=== PATIENT | male | born 1950 | race African-American/Black ===

== ENCOUNTER 2016-08-13 19:48 | Inpatient (IN) | payer MEDICARE, MEDICAID ==
[~2016-08-13] VITALS: Ht 180.3 cm; Wt 169.8 kg
[~2016-08-13 19:48] MED LIST: ALLO300 PO; AMLO2.5T PO; ARIP10TA14 PO; ATOR20TA86 PO; CARV12 PO; DOCU250C76 PO; FURO40 PO; LEVAHFA IH; MULT-22 PO; PANT40TA25 PO; WARF2 PO
[2016-08-13 20:22] LABS: GLUCOSE COMMENT 1 Doctor Notified; GLUCOSE,POINT OF CARE 103 MG/DL (70-110)
[2016-08-13 21:27] LABS: EOSINOPHILS % (AUTO) 1.3 % (1.0-6.0); HEMATOCRIT 42.9 % (41-53); HEMOGLOBIN 13.4 g/dL (13.5-17.5); LYMPHOCYTES # (AUTO) 1.9 K/uL (1.0-4.8); LYMPHOCYTES % (AUTO) 15.2 % (22.0-44.0); MEAN CORPUSCULAR HEMOGLOBIN 25.5 pg (26.0-34.0); MEAN CORPUSCULAR HGB CONC 31.2 G/dL (31.0-37.0); MEAN CORPUSCULAR VOLUME 82 fL (80-100); MONOCYTES # (AUTO) 0.6 K/uL (0.1-1.0); NEUTROPHILS # (AUTO) 9.9 K/uL (1.8-7.7); NEUTROPHILS % (AUTO) 78.5 % (40.0-70.0); PLATELET COUNT (AUTO) 263 K/uL (150-450); RED BLOOD CELL COUNT(AUTO) 5.26 MIL/uL (4.50-5.90); RED CELL DISTRIBUTION WIDTH 17.6 % (11.5-14.5); WHITE BLOOD COUNT (AUTO) 12.6 K/uL (4.5-11.0)
[2016-08-13 21:43] LABS: RBC MORPHOLOGY COMMENT ABNORMAL RBC MORPH
[2016-08-13 21:45] LABS: ANION GAP 8 mmol/L (8-16); CALCIUM, TOTAL 8.4 mg/dL (8.8-10.5); CARBON DIOXIDE 31 mmol/L (22-29); CHLORIDE 107 mmol/L (98-107); CREATININE 1.74 mg/dL (0.60-1.30); GLOMERULAR FILTR. RATE CALC 47 mL/min (>60); POTASSIUM 4.4 mmol/L (3.5-5.1); SODIUM SERUM 146 mmol/L (136-145); UREA NITROGEN, BLOOD 23 mg/dL (7-18)
[2016-08-13 21:50] LABS: ALANINE AMINOTRANSFERASE 12 U/L (12-78); ALBUMIN 2.8 g/dL (3.4-5.0); ASPARTATE AMINOTRANSFERASE 13 U/L (15-37); BILIRUBIN,TOTAL 0.7 mg/dL (0.1-1.0); TOTAL PROTEIN, SERUM 7.8 g/dL (6.4-8.2)
[2016-08-13 22:59] LABS: APPEARANCE,URINE CLEAR (CLEAR); GLUCOSE, URINE (UA) NEGATIVE (NEGATIVE); KETONES,URINE NEGATIVE (NEGATIVE); LEUKOCYTE ESTERASE ,URINE NEGATIVE (NEGATIVE); OCCULT BLOOD,URINE MODERATE (NEGATIVE); PH,URINE 6.5 (5.0-8.0); PROTEIN,URINE SEE CONFIRM (NEGATIVE)
[2016-08-13 23:09] LABS: ADD UA MICROSCOPIC YES
[2016-08-13 23:34] LABS: SULFOSALICYLIC ACID,URINE 2+ (Negative)
[2016-08-14] MEDS ORDERED: HALOPERIDOL 5 MG TABLET PO PRN (00:45)
[2016-08-14] MEDS ORDERED: LORazepam 1 MG TABLET PO PRN (00:45)
[2016-08-14 03:33] VITALS: BP 138/79
[2016-08-14] MEDS: ARIPiprazole 10 MG TABLET PO SCH (11:26)
[2016-08-14 12:45] VITALS: BP 138/91
[2016-08-14] MEDS ORDERED: MAG HYDROX/AL HYDROX/SIMETH ES 30 ML SUSPENSION UDCUP PO PRN (16:30)
[2016-08-14] MEDS ORDERED: ONDANSETRON HCL 4 MG TABLET PO PRN (16:30)
[2016-08-14] MEDS ORDERED: IBUPROFEN 600 MG TABLET PO PRN (16:30)
[2016-08-14] MEDS ORDERED: ALBUTEROL SULFATE HFA 90 MCG/PUFF 8 GM INHALER IH PRN (16:30)
[2016-08-14] MEDS ORDERED: CloNIDine HCL 0.1 MG TABLET PO PRN (16:30)
[2016-08-14] MEDS ORDERED: MAGNESIUM HYDROXIDE SUSPENSION 30 ML UDCUP PO PRN (16:30)
[2016-08-14] MEDS ORDERED: LOPERAMIDE HCL 2 MG CAPSULE PO PRN (16:30)
[2016-08-14] MEDS ORDERED: BACITRACIN 28.4 GM OINTMENT TP PRN (16:30)
[2016-08-14] MEDS ORDERED: DEXTROSE 50%-WATER 25 GM/50 ML SYRINGE IVP PRN (16:30)
[2016-08-14] MEDS ORDERED: PETROLATUM,WHITE 71 GM JELLY TP PRN (16:30)
[2016-08-14] MEDS ORDERED: BENZOCAINE/MENTHOL LOZENGE [8 LOZENGES/PACKET] MM PRN (16:45)
[2016-08-14] MEDS: DOCUSATE SODIUM 250 MG CAPSULE PO SCH (17:32)
[2016-08-14] MEDS: CARVEDILOL 12.5 MG TABLET PO SCH (17:33)
[2016-08-14 17:34] VITALS: BP 165/107
[2016-08-14 17:52] LABS: GLUCOSE,POINT OF CARE 115 MG/DL (70-110)
[2016-08-14 21:48] LABS: GLUCOSE,POINT OF CARE 105 MG/DL (70-110)
[2016-08-14 22:52] VITALS: BP 149/70
[2016-08-15 03:00] VITALS: BP 136/83
[2016-08-15 03:17] LABS: GLUCOSE,POINT OF CARE 125 MG/DL (70-110)
[2016-08-15 05:10] VITALS: BP 132/79
[2016-08-15 05:22] LABS: GLUCOSE,POINT OF CARE 111 MG/DL (70-110)
[2016-08-15 06:29] LABS: HEMOGLOBIN A1C 7.4 % (4.5-6.2)
[2016-08-15 06:38] LABS: CALCIUM, TOTAL 8.8 mg/dL (8.8-10.5); CHOL/HDL RATIO 3.7 (4.2-7.3); CREATININE 1.61 mg/dL (0.60-1.30); POTASSIUM 3.8 mmol/L (3.5-5.1); THYROID STIMULATING HORMONE 0.81 uIU/mL (0.36-3.74)
[2016-08-15 08:30] VITALS: BP 123/53
[2016-08-15] MEDS: PANTOPRAZOLE SODIUM 40 MG DR TABLET PO SCH ×2 (08:56→09:00)
[2016-08-15] MEDS: DOCUSATE SODIUM 250 MG CAPSULE PO SCH ×3 (08:56→17:00)
[2016-08-15] MEDS: ATORVASTATIN CALCIUM 20 MG TABLET PO SCH ×2 (08:56→09:00)
[2016-08-15] MEDS: MULTIVITAMINS, THERAPEUTIC TABLET PO SCH ×2 (08:56→09:00)
[2016-08-15] MEDS: ARIPiprazole 10 MG TABLET PO SCH ×2 (08:57→09:00)
[2016-08-15] MEDS: FUROSEMIDE 40 MG TABLET PO SCH ×2 (08:57→09:00)
[2016-08-15] MEDS: CARVEDILOL 12.5 MG TABLET PO SCH ×3 (08:57→17:00)
[2016-08-15] MEDS: ALLOPURINOL 300 MG TABLET PO SCH ×2 (08:58→09:00)
[2016-08-15] MEDS: AmLODIPine BESYLATE 2.5 MG TABLET PO SCH ×2 (08:59→09:00)
[2016-08-15] MEDS ORDERED: LORazepam 2 MG/ML VIAL IM ONE ×2 (10:15→11:15)
[2016-08-15] MEDS ORDERED: DiphenhydrAMINE HCL 50 MG/ML VIAL IM ONE ×2 (10:15→11:15)
[2016-08-15] MEDS ORDERED: HALOPERIDOL LACTATE 5 MG/ML VIAL IM ONE (10:15)
[2016-08-15 10:36] LABS: GLUCOSE,POINT OF CARE 122 MG/DL (70-110)
[2016-08-15 13:00] VITALS: BP 129/65
[2016-08-15] MEDS: INSULIN ASPART 100 UNITS/ML SQ PRN (13:26)
[2016-08-15 16:14] VITALS: BP 126/76
[2016-08-15 18:57] LABS: GLUCOSE COMMENT 1 FASTING; GLUCOSE,POINT OF CARE 98 MG/DL (70-110)
[2016-08-16 02:11] LABS: GLUCOSE,POINT OF CARE 74 MG/DL (70-110)
[2016-08-16 05:18] VITALS: BP 115/60
[2016-08-16 05:22] LABS: GLUCOSE,POINT OF CARE 72 MG/DL (70-110)
[2016-08-16 06:44] LABS: BASOPHILS % (AUTO) 0.2 % (0.0-2.0); EOSINOPHILS % (AUTO) 2.8 % (1.0-6.0); HEMOGLOBIN 13.5 g/dL (13.5-17.5); LYMPHOCYTES # (AUTO) 1.9 K/uL (1.0-4.8); LYMPHOCYTES % (AUTO) 17.6 % (22.0-44.0); MEAN CORPUSCULAR HGB CONC 31.4 G/dL (31.0-37.0); MEAN CORPUSCULAR VOLUME 83 fL (80-100); MONOCYTES # (AUTO) 0.7 K/uL (0.1-1.0); MONOCYTES % (AUTO) 6.2 % (2.0-9.0); NEUTROPHILS # (AUTO) 7.7 K/uL (1.8-7.7); NEUTROPHILS % (AUTO) 73.2 % (40.0-70.0); PLATELET COUNT (AUTO) 207 K/uL (150-450); RED CELL DISTRIBUTION WIDTH 17.6 % (11.5-14.5); WHITE BLOOD COUNT (AUTO) 10.6 K/uL (4.5-11.0)
[2016-08-16 06:46] LABS: RBC MORPHOLOGY COMMENT ABNORMAL RBC MORPH
[2016-08-16 07:09] LABS: ALBUMIN 2.4 g/dL (3.4-5.0); BILIRUBIN,TOTAL 0.8 mg/dL (0.1-1.0); CALCIUM, TOTAL 8.6 mg/dL (8.8-10.5); CREATININE 1.52 mg/dL (0.60-1.30); MAGNESIUM 2.3 mg/dL (1.80-2.40); PHOSPHORUS 4.3 mg/dL (2.5-4.9); POTASSIUM 4.5 mmol/L (3.5-5.1); TOTAL PROTEIN, SERUM 7.1 g/dL (6.4-8.2)
[2016-08-16 09:00] VITALS: BP 154/65
[2016-08-16] MEDS: MULTIVITAMINS, THERAPEUTIC TABLET PO SCH (09:17)
[2016-08-16] MEDS: ARIPiprazole 10 MG TABLET PO SCH (09:17)
[2016-08-16] MEDS: ATORVASTATIN CALCIUM 20 MG TABLET PO SCH (09:17)
[2016-08-16] MEDS: CHOLECALCIFEROL (VIT D3) 1,000 UNITS TABLET PO SCH (09:17)
[2016-08-16] MEDS: FUROSEMIDE 40 MG TABLET PO SCH (09:18)
[2016-08-16] MEDS: ALLOPURINOL 300 MG TABLET PO SCH (09:18)
[2016-08-16] MEDS: AmLODIPine BESYLATE 2.5 MG TABLET PO SCH (09:18)
[2016-08-16] MEDS: CARVEDILOL 12.5 MG TABLET PO SCH ×2 (09:18→16:51)
[2016-08-16] MEDS: PANTOPRAZOLE SODIUM 40 MG DR TABLET PO SCH (09:18)
[2016-08-16] MEDS: DOCUSATE SODIUM 250 MG CAPSULE PO SCH ×2 (09:18→16:51)
[2016-08-16 11:22] LABS: GLUCOSE,POINT OF CARE 104 MG/DL (70-110)
[2016-08-16 16:33] VITALS: BP 128/63
[2016-08-16 17:16] LABS: GLUCOSE,POINT OF CARE 123 MG/DL (70-110)
[2016-08-16 21:52] LABS: GLUCOSE,POINT OF CARE 115 MG/DL (70-110)
[2016-08-16] MEDS: ZOLPIDEM TARTRATE 10 MG TABLET PO PRN (22:38)
[2016-08-17 01:02] VITALS: BP 120/57
[2016-08-17 05:33] LABS: GLUCOSE,POINT OF CARE 108 MG/DL (70-110)
[2016-08-17 08:00] VITALS: BP 129/76
[2016-08-17] MEDS: PANTOPRAZOLE SODIUM 40 MG DR TABLET PO SCH (08:50)
[2016-08-17] MEDS: CHOLECALCIFEROL (VIT D3) 1,000 UNITS TABLET PO SCH (08:50)
[2016-08-17] MEDS: MULTIVITAMINS, THERAPEUTIC TABLET PO SCH (08:50)
[2016-08-17] MEDS: DOCUSATE SODIUM 250 MG CAPSULE PO SCH ×2 (09:00→16:31)
[2016-08-17] MEDS: FUROSEMIDE 40 MG TABLET PO SCH (09:37)
[2016-08-17] MEDS: CARVEDILOL 12.5 MG TABLET PO SCH ×3 (09:37→17:25)
[2016-08-17] MEDS: ARIPiprazole 10 MG TABLET PO SCH (09:37)
[2016-08-17] MEDS: ALLOPURINOL 300 MG TABLET PO SCH (09:37)
[2016-08-17] MEDS: ATORVASTATIN CALCIUM 20 MG TABLET PO SCH (09:37)
[2016-08-17] MEDS: AmLODIPine BESYLATE 2.5 MG TABLET PO SCH (09:38)
[2016-08-17 11:32] LABS: GLUCOSE COMMENT 1 Repeated; GLUCOSE,POINT OF CARE 108 MG/DL (70-110)
[2016-08-17] MEDS: INSULIN ASPART 100 UNITS/ML SQ PRN (16:29)
[2016-08-17] MEDS: ACETAMINOPHEN 325 MG TABLET PO PRN ×2 (16:33→20:51)
[2016-08-17 16:36] VITALS: BP 122/54
[2016-08-17 16:57] LABS: GLUCOSE,POINT OF CARE 90 MG/DL (70-110)
[2016-08-17 20:55] VITALS: BP 132/78
[2016-08-17 20:57] LABS: GLUCOSE COMMENT 1 Received Meds; GLUCOSE,POINT OF CARE 144 MG/DL (70-110)
[2016-08-17] MEDS: ZOLPIDEM TARTRATE 10 MG TABLET PO PRN (23:52)
[2016-08-18 05:03] VITALS: BP 131/64
[2016-08-18 05:22] LABS: GLUCOSE,POINT OF CARE 128 MG/DL (70-110)
[2016-08-18 08:01] VITALS: BP 121/75
[2016-08-18] MEDS: AmLODIPine BESYLATE 2.5 MG TABLET PO SCH (08:46)
[2016-08-18] MEDS: CHOLECALCIFEROL (VIT D3) 1,000 UNITS TABLET PO SCH (08:46)
[2016-08-18] MEDS: CARVEDILOL 12.5 MG TABLET PO SCH ×2 (08:46→16:33)
[2016-08-18] MEDS: ALLOPURINOL 300 MG TABLET PO SCH (08:46)
[2016-08-18] MEDS: PANTOPRAZOLE SODIUM 40 MG DR TABLET PO SCH (08:46)
[2016-08-18] MEDS: ARIPiprazole 10 MG TABLET PO SCH (08:46)
[2016-08-18] MEDS: ATORVASTATIN CALCIUM 20 MG TABLET PO SCH (08:46)
[2016-08-18] MEDS: FUROSEMIDE 40 MG TABLET PO SCH (08:46)
[2016-08-18] MEDS: DOCUSATE SODIUM 250 MG CAPSULE PO SCH ×2 (08:47→16:33)
[2016-08-18] MEDS: MULTIVITAMINS, THERAPEUTIC TABLET PO SCH (08:47)
[2016-08-18 11:17] LABS: GLUCOSE,POINT OF CARE 138 MG/DL (70-110)
[2016-08-18 16:41] LABS: GLUCOSE,POINT OF CARE 123 MG/DL (70-110)
[2016-08-18 16:49] VITALS: BP 123/62
[2016-08-18 20:56] LABS: GLUCOSE,POINT OF CARE 106 MG/DL (70-110)
[2016-08-19 06:57] LABS: GLUCOSE,POINT OF CARE 96 MG/DL (70-110)
[2016-08-19 08:00] VITALS: BP 135/71
[2016-08-19] MEDS: FUROSEMIDE 40 MG TABLET PO SCH (09:18)
[2016-08-19] MEDS: ALLOPURINOL 300 MG TABLET PO SCH (09:18)
[2016-08-19] MEDS: DOCUSATE SODIUM 250 MG CAPSULE PO SCH (09:18)
[2016-08-19] MEDS: CARVEDILOL 12.5 MG TABLET PO SCH (09:18)
[2016-08-19] MEDS: PANTOPRAZOLE SODIUM 40 MG DR TABLET PO SCH (09:18)
[2016-08-19] MEDS: AmLODIPine BESYLATE 2.5 MG TABLET PO SCH (09:18)
[2016-08-19] MEDS: ATORVASTATIN CALCIUM 20 MG TABLET PO SCH (09:18)
[2016-08-19] MEDS: ARIPiprazole 10 MG TABLET PO SCH (09:18)
[2016-08-19] MEDS: CHOLECALCIFEROL (VIT D3) 1,000 UNITS TABLET PO SCH (09:18)
[2016-08-19] MEDS: MULTIVITAMINS, THERAPEUTIC TABLET PO SCH (09:19)
[2016-08-19 11:33] LABS: GLUCOSE,POINT OF CARE 123 MG/DL (70-110)
[2016-08-19] MEDS ORDERED: VITAD1000 PO (12:17)
== END 2016-08-19 13:30 | disposition home or self-care (01) | DRG 750 ==
LOC: EMS 19:49 → 3EI 08-14 00:19
PROVIDERS: ADMIT Psychiatry & Neurology Child & Adolescent Psychiatry; ATTEND Psychiatry & Neurology Child & Adolescent Psychiatry
PROC: 5A09357 Assistance with Respiratory Ventilation, Less than 24 Consecutive Hours, Continuous Positive Airway Pressure (ICD-10-PCS; principal; 2016-08-15)
DX: F20.0 Paranoid schizophrenia (principal); N17.9 Acute kidney failure, unspecified; F03.90 Unspecified dementia, unspecified severity, without behavioral disturbance, psychotic disturbance, mood disturbance, and anxiety; I11.0 Hypertensive heart disease with heart failure; E11.40 Type 2 diabetes mellitus with diabetic neuropathy, unspecified; I50.9 Heart failure, unspecified; E78.5 Hyperlipidemia, unspecified; E78.00 Pure hypercholesterolemia, unspecified; E66.01 Morbid (severe) obesity due to excess calories; G47.33 Obstructive sleep apnea (adult) (pediatric); Z82.49 Family history of ischemic heart disease and other diseases of the circulatory system; I25.10 Atherosclerotic heart disease of native coronary artery without angina pectoris; J44.9 Chronic obstructive pulmonary disease, unspecified; I50.22 Chronic systolic (congestive) heart failure; F09 Unspecified mental disorder due to known physiological condition; J45.909 Unspecified asthma, uncomplicated; K21.9 Gastro-esophageal reflux disease without esophagitis; Z89.512 Acquired absence of left leg below knee; Z88.0 Allergy status to penicillin; Z88.5 Allergy status to narcotic agent; Z91.14 Patient's other noncompliance with medication regimen; Z68.43 Body mass index [BMI] 50.0-59.9, adult; Z79.01 Long term (current) use of anticoagulants; Z79.84 Long term (current) use of oral hypoglycemic drugs; Z79.51 Long term (current) use of inhaled steroids; Z79.899 Other long term (current) drug therapy; Z83.3 Family history of diabetes mellitus; Z82.5 Family history of asthma and other chronic lower respiratory diseases; E11.51 Type 2 diabetes mellitus with diabetic peripheral angiopathy without gangrene
CPT/HCPCS: 82306; 82962; 83036; 83735; 84100; 84443; 94660; 99285; G0480; J1200; J1630; J2060; J3230

== ENCOUNTER 2019-02-15 16:32 | Emergency (ER) | payer MEDICARE, OTHER ==
[~2019-02-15] VITALS: Ht 170.2 cm; Wt 163.6 kg
[~2019-02-15 16:32] MED LIST changes: -AMLO2.5T PO; -ARIP10TA14 PO; -ATOR20TA86 PO; +CHOL100018 PO; +CILO2.5OS OU; +DOCU250C14 PO; -DOCU250C76 PO; -LEVAHFA IH; +LORA10TA7 PO; -MULT-22 PO; +OMEP20 PO; -PANT40TA25 PO; +RISP1 PO; +RIVA20TA PO; +SLOWK8 PO; -WARF2 PO
[2019-02-15 19:16] LABS: EOSINOPHILS % (AUTO) 0.9 % (1.0-6.0); HEMATOCRIT 45.5 % (41-53); HEMOGLOBIN 14.9 g/dL (13.5-17.5); LYMPHOCYTES # (AUTO) 1.7 K/uL (1.0-4.8); LYMPHOCYTES % (AUTO) 21.2 % (22.0-44.0); MEAN CORPUSCULAR HEMOGLOBIN 28.7 pg (26.0-34.0); MEAN CORPUSCULAR HGB CONC 32.9 G/dL (31.0-37.0); MEAN CORPUSCULAR VOLUME 87 fL (80-100); MONOCYTES # (AUTO) 0.6 K/uL (0.1-1.0); MONOCYTES % (AUTO) 7.8 % (2.0-9.0); NEUTROPHILS # (AUTO) 5.6 K/uL (1.8-7.7); NEUTROPHILS % (AUTO) 69.1 % (40.0-70.0); PLATELET COUNT (AUTO) 272 K/uL (150-450); RED CELL DISTRIBUTION WIDTH 15.4 % (11.5-14.5)
[2019-02-15 19:44] LABS: ANION GAP 14 mmol/L (8-16); CARBON DIOXIDE 25 mmol/L (22-29); CHLORIDE 107 mmol/L (98-107); GLUCOSE,RANDOM 121 mg/dL (70-110); POTASSIUM 3.9 mmol/L (3.5-5.1); SODIUM SERUM 146 mmol/L (136-145); UREA NITROGEN, BLOOD 29 mg/dL (7-18)
[2019-02-15 19:50] LABS: ALANINE AMINOTRANSFERASE 16 U/L (12-78); ALBUMIN 3.5 g/dL (3.4-5.0); ALKALINE PHOSPHATASE 75 U/L (46-116); BILIRUBIN,TOTAL 0.8 mg/dL (0.1-1.0); TOTAL PROTEIN, SERUM 8.2 g/dL (6.4-8.2)
[2019-02-15 20:01] LABS: ASPARTATE AMINOTRANSFERASE 14 U/L (15-37); GLOMERULAR FILTR. RATE CALC 45 mL/min (>60)
[2019-02-15] MEDS ORDERED: LORazepam 1 MG TABLET PO ONE (20:30)
[2019-02-15] MEDS ORDERED: DiphenhydrAMINE HCL 25 MG CAPSULE PO ONE (20:30)
[2019-02-15 20:47] LABS: AMPHET/METH SCREEN,URINE NEGATIVE (NEGATIVE); BARBITURATE SCREEN, URINE NEGATIVE (NEGATIVE); BENZODIAZEPINES SCREEN,URINE NEGATIVE (NEGATIVE); CANNABINOID SCREEN,URINE NEGATIVE (NEGATIVE); COCAINE SCREEN,URINE NEGATIVE (NEGATIVE); METHADONE SCREEN, URINE NEGATIVE (NEGATIVE); OPIATE SCREEN,URINE NEGATIVE (NEGATIVE)
[2019-02-15 20:48] LABS: PHENCYCLIDINE SCREEN,URINE NEGATIVE (NEGATIVE)
[2019-02-15 21:35] VITALS: BP 135/81
== END 2019-02-15 21:49 | disposition home or self-care (01) ==
LOC: EMS 16:34
DX: G47.00 Insomnia, unspecified (principal); E78.00 Pure hypercholesterolemia, unspecified; I25.10 Atherosclerotic heart disease of native coronary artery without angina pectoris; I11.0 Hypertensive heart disease with heart failure; I50.9 Heart failure, unspecified; J44.9 Chronic obstructive pulmonary disease, unspecified; K21.9 Gastro-esophageal reflux disease without esophagitis; Z89.512 Acquired absence of left leg below knee; Z79.899 Other long term (current) drug therapy; Z88.0 Allergy status to penicillin; Z88.5 Allergy status to narcotic agent
CPT/HCPCS: 36415; 80053; 80307; 85025; 99283; G0480